=== PATIENT | male | born 1970 | race Caucasian/White ===

== ENCOUNTER 2016-12-20 16:50 | Emergency (ER) | payer OTHER ==
[2016-12-20 16:55] VITALS: BP 143/88
--- NOTE | 2016-12-20 18:11 | UC ---
Throat Pain/Nasal Eriberto HPI - HPI Summary HPI Summary: ONE WEEK OF WORSENING SORE THROAT. FEVER, SWOLLEN LYMPH NODES. - History of Current Complaint Chief Complaint: UCRespiratory Stated Complaint: SORE THROAT Time Seen by Provider: 12/20/16 16:58 Hx Obtained From: Patient Onset/Duration: Gradual Onset, Lasting Weeks, Still Present Severity: Moderate Pain Intensity: 0 Pain Scale Used: 0-10 Numeric Cough: None Associated Signs & Symptoms: Positive: Dysphagia, Hoarseness, Fever - Epiglottits Risk Factors Epiglottis Risk Factors: Negative - Allergies/Home Medications Allergies/Adverse Reactions: Allergies Allergy/AdvReac Type Severity Reaction Status Date / Time Morphine Allergy Intermediate Nausea Verified 12/20/16 16:55 Amoxicillin Allergy THROAT Verified 12/20/16 16:55 SWELLING Penicillins Allergy Anaphylatic Verified 12/20/16 16:55 Shock Sulfa Antibiotics Allergy Hives Verified 12/20/16 16:55 Hydrocodone [From Vicodin] AdvReac Agitation Verified 12/20/16 16:55 Home Medications: Home Medications Ibuprofen TAB* [Advil TAB*] 1,000 mg PO PRN 12/20/16 [History] PMH/Surg Hx/FS Hx/Imm Hx Previously Healthy: Yes Endocrine History Of: Denies: Diabetes Cardiovascular History Of: Denies: Hypertension, Pacemaker/ICD, Congestive Heart Failure Respiratory History Of: Reports: Bronchitis GI/ History Of: Reports: Kidney Stones - IN PAST Denies: Renal Disease Neurological History Of: Reports: Migraine - Surgical History Surgical History: Yes Surgery Procedure, Year, and Place: Back [id number]/umbilical hernia repair 12/29/13 - Family History Known Family History: Positive: Unknown, Cardiac Disease - Social History Occupation: Employed Full-time Lives: With Family Alcohol Use: Occasionally Alcohol Amount: 6 PACK /WEEK Substance Use Type: None Smoking Status (MU): Never Smoked Tobacco - Immunization History Most Recent Tetanus Shot: UTD Review of Systems Constitutional: Fever, Chills, Fatigue Skin: Negative ENT: Sore Throat Respiratory: Negative Cardiovascular: Negative Gastrointestinal: Negative Genitourinary: Negative Motor: Negative Neurovascular: Negative Musculoskeletal: Negative Neurological: Negative Psychological: Negative All Other Systems Reviewed And Are Negative: Yes Physical Exam Triage Information Reviewed: Yes Appearance: No Pain Distress, Well-Nourished, Ill-Appearing - MILD Vital Signs: Initial Vital Signs Temp 97.5 F 12/20/16 16:51 Pulse 93 12/20/16 16:51 Resp 18 12/20/16 16:51 BP 143/88 12/20/16 16:51 Pulse Ox 99 12/20/16 16:51 Vital Signs Reviewed: Yes Eye Exam: Normal Eyes: Positive: Conjunctiva Clear ENT Exam: Normal ENT: Positive: Hearing grossly normal, Pharyngeal erythema, TM dull, Tonsillar swelling Dental Exam: Normal Neck exam: Normal Neck: Positive: Supple, Nontender, No Lymphadenopathy Respiratory Exam: Normal Respiratory: Positive: Chest non-tender, Lungs clear, Normal breath sounds, No respiratory distress Cardiovascular Exam: Normal Cardiovascular: Positive: RRR, No Murmur, Pulses Normal Abdominal Exam: Normal Abdomen Description: Positive: Nontender, No Organomegaly Musculoskeletal Exam: Normal Musculoskeletal: Positive: Strength Intact, ROM Intact, No Edema Neurological Exam: Normal Psychological Exam: Normal Psychological: Positive: Normal Response To Family Skin Exam: Normal Throat Pain/Nasal Course/Dx - Differential Dx/Diagnosis Differential Diagnosis/HQI/PQRI: Pharyngitis, Sinusitis, Tonsillitis, URI Provider Diagnoses: STREP TONSILLITIS Discharge - Discharge Plan Condition: Stable Disposition: HOME Prescriptions: Clindamycin Cap(NF) [Cleocin 300 mg Cap(NF)] 300 mg PO TID #30 cap Patient Education Materials: Strep Throat (ED) Referrals: Molly Hernandez MD [Primary Care Provider] -
== END 2016-12-20 17:50 | disposition home or self-care (01) ==
LOC: UCEAST 16:50
DX: J02.0 Streptococcal pharyngitis (principal); Z88.0 Allergy status to penicillin; Z88.1 Allergy status to other antibiotic agents; Z88.2 Allergy status to sulfonamides; Z88.5 Allergy status to narcotic agent
CPT/HCPCS: 87651; 99212; G0463

== ENCOUNTER 2017-04-07 07:54 | Emergency (ER) | payer OTHER ==
--- NOTE | 2017-04-07 08:47 | RAD ---
INDICATION: Left foot and ankle pain after kicking a box COMPARISON: None. TECHNIQUE: 3 views of the left ankle and 3 views of the left foot were obtained. FINDINGS: The well corticated bones exhibit normal alignment. Joint spaces appear maintained. No fracture is seen. IMPRESSION: NORMAL FOOT AND ANKLE RADIOGRAPH. If the patient's symptoms persist, follow-up imaging is recommended.
--- NOTE | 2017-04-07 08:56 | ED ---
Lower Extremity - HPI Summary HPI Summary: Patient presents with left small toe pain after kicking a metal tool box in his bedroom on the way to the bathroom this AM. He was bare foot and had immediate pain. He went back to bed but was unable to sleep due to pain. The toe is swollen without bruising. 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 - History of Current Complaint Chief Complaint: EDExtremityLower Stated Complaint: LEFT FOOT INJURY Time Seen by Provider: 04/07/17 08:35 Hx Obtained From: Patient, Family/Home Stager Mechanism Of Injury: Blunt Trauma Onset of Pain: Immediate Onset/Duration: Hours Severity Initially: Severe Severity Currently: Moderate Pain Intensity: 6 Timing: Constant Character Of Pain: Sharp, Aching Associated Signs And Symptoms: Positive: Swelling Aggravating Factor(s): Standing Alleviating Factor(s): Nothing Able to Bear Weight: Yes - Allergies/Home Medications Allergies/Adverse Reactions: Allergies Allergy/AdvReac Type Severity Reaction Status Date / Time Morphine Allergy Intermediate Nausea Verified 12/20/16 16:55 Amoxicillin Allergy THROAT Verified 12/20/16 16:55 SWELLING Clindamycin Allergy Rash And Verified 04/07/17 08:11 Itching Penicillins Allergy Anaphylatic Verified 12/20/16 16:55 Shock Sulfa Antibiotics Allergy Hives Verified 12/20/16 16:55 Hydrocodone [From Vicodin] AdvReac Agitation Verified 12/20/16 16:55 Home Medications: Home Medications NK [No Home Medications Reported] 04/07/17 [History Confirmed 04/07/17] PMH/Surg Hx/FS Hx/Imm Hx Endocrine/Hematology History: Denies: Hx Diabetes Cardiovascular History: Reports: Other Cardiovascular Problems/Disorders - PATIENT REPORTS LEFT LEG SWELLS AND TURNS AND REDS Denies: Hx Congestive Heart Failure, Hx Hypertension, Hx Pacemaker/ICD GI History: Denies: Other GI Disorders History: Reports: Hx Kidney Stones - IN PAST Denies: Hx Renal Disease Sensory History: Reports: Hx Contacts or Glasses - GLASSES Denies: Hx Hearing Aid Opthamlomology History: Reports: Hx Contacts or Glasses - GLASSES Neurological History: Reports: Hx Headaches, Hx Migraine Psychiatric History: Denies: Hx Panic Disorder - Surgical History Surgery Procedure, Year, and Place: Back [id number]/umbilical hernia repair 12/29/13 Hx Anesthesia Reactions: No - Immunization History Date of Tetanus Vaccine: up to date per pt Infectious Disease History: Denies: Traveled Outside the [place] in Last 30 Days - Family History Known Family History: Positive: Unknown, Cardiac Disease - Social History Occupation: Employed Full-time Lives: With Family Alcohol Use: Occasionally Alcohol Amount: 6 PACK /WEEK Substance Use Type: Reports: None Smoking Status (MU): Never Smoked Tobacco Review of Systems Positive: Arthralgia, Edema All Other Systems Reviewed And Are Negative: Yes Physical Exam Triage Information Reviewed: Yes Vital Signs On Initial Exam: Initial Vitals Temp Pulse Resp BP Pulse Ox 97.6 F 84 18 147/95 99 04/07/17 07:56 04/07/17 07:56 04/07/17 07:56 04/07/17 07:56 04/07/17 07:56 Vital Signs Reviewed: Yes Appearance: Positive: Well-Appearing, Well-Nourished, Pain Distress Skin: Positive: Warm, Skin Color Reflects Adequate Perfusion, Dry, Soft Head/Face: Positive: Normal Head/Face Inspection Eyes: Positive: EOMI, SANAZ, Conjunctiva Clear ENT: Positive: Hearing grossly normal Respiratory/Lung Sounds: Positive: Breath Sounds Present Cardiovascular: Positive: RRR Musculoskeletal: Positive: Pain @ - TTP left small toe, Edema Left - small toe Neurological: Positive: Sensory/Motor Intact, Alert, Oriented to Person Place, Time Psychiatric: Positive: Affect/Mood Appropriate AVPU Assessment: Alert Diagnostics - Vital Signs Vital Signs Temp Pulse Resp BP Pulse Ox 04/07/17 08:08 77 98 04/07/17 08:07 138/96 04/07/17 07:56 97.6 F 84 18 147/95 99 - Laboratory Lab Statement: Any lab studies that have been ordered have been reviewed, and results considered in the medical decision making process. - Radiology No standard instances Xray Interpretation: No Acute Changes Radiology Interpretation Completed By: Radiologist Lower Extremity Course/Dx - Diagnoses Differential Diagnosis/HQI/PQRI: Positive: Arthritis, Bursitis, Cellulitis, Contusion, Fracture (Closed), Sprain, Strain Provider Diagnoses: Contusion of small toe of left foot Discharge - Discharge Plan Condition: Stable Disposition: HOME Patient Education Materials: Foot Contusion (ED) Referrals: Molly Hernandez MD [Primary Care Provider] - Additional Instructions: Please follow-up with your primary care provider with questions or concerns as needed.
[2017-04-07 09:16] VITALS: BP 118/72
== END 2017-04-07 09:02 | disposition home or self-care (01) ==
LOC: ED 07:54
DX: S90.122A Contusion of left lesser toe(s) without damage to nail, initial encounter (principal); W22.8XXA Striking against or struck by other objects, initial encounter; Y93.9 Activity, unspecified; Y92.9 Unspecified place or not applicable
CPT/HCPCS: 99282

== ENCOUNTER 2017-05-07 16:59 | Emergency (ER) | payer OTHER ==
--- NOTE | 2017-05-07 18:22 | RAD ---
Indication: Left knee injury. 4 views of left knee demonstrates no fracture or dislocation. No other bone or joint abnormality is identified. IMPRESSION: No fracture of the left knee is noted.
[2017-05-07 19:55] VITALS: BP 135/87
--- NOTE | 2017-05-07 20:11 | ED ---
Lower Extremity - HPI Summary HPI Summary: 46M presents with left knee injury s/p twisting it today. He was coming down a ladder when he twisted his knee. He denies any previous injury to the knee. He is able to bear weight on it. He denies any popping or locking of the knee. He has not taken anything for pain. He denies any numbness or tingling. He states pain is greatest when he has his knee bent. He denies any instability to the knee. - History of Current Complaint Chief Complaint: EDExtremityLower Stated Complaint: LT KNEE INURY Time Seen by Provider: 05/07/17 19:31 Pain Intensity: 10 - Allergies/Home Medications Allergies/Adverse Reactions: Allergies Allergy/AdvReac Type Severity Reaction Status Date / Time Morphine Allergy Intermediate Nausea Verified 12/20/16 16:55 Amoxicillin Allergy THROAT Verified 12/20/16 16:55 SWELLING Clindamycin Allergy Rash And Verified 04/07/17 08:11 Itching Penicillins Allergy Anaphylatic Verified 12/20/16 16:55 Shock Sulfa Antibiotics Allergy Hives Verified 12/20/16 16:55 Hydrocodone [From Vicodin] AdvReac Agitation Verified 12/20/16 16:55 PMH/Surg Hx/FS Hx/Imm Hx Endocrine/Hematology History: Denies: Hx Diabetes Cardiovascular History: Reports: Other Cardiovascular Problems/Disorders - PATIENT REPORTS LEFT LEG SWELLS AND TURNS AND REDS Denies: Hx Congestive Heart Failure, Hx Hypertension, Hx Pacemaker/ICD GI History: Denies: Other GI Disorders History: Reports: Hx Kidney Stones - IN PAST Denies: Hx Renal Disease Sensory History: Reports: Hx Contacts or Glasses - GLASSES Denies: Hx Hearing Aid Opthamlomology History: Reports: Hx Contacts or Glasses - GLASSES Neurological History: Reports: Hx Headaches, Hx Migraine Psychiatric History: Denies: Hx Panic Disorder - Surgical History Surgery Procedure, Year, and Place: Back [id number]/umbilical hernia repair 12/29/13 Hx Anesthesia Reactions: No - Immunization History Date of Tetanus Vaccine: up to date per pt Infectious Disease History: No Infectious Disease History: Denies: Traveled Outside the [place] in Last 30 Days - Family History Known Family History: Positive: Unknown, Cardiac Disease - Social History Alcohol Use: Occasionally Alcohol Amount: 6 PACK /WEEK Substance Use Type: Reports: None Smoking Status (MU): Never Smoked Tobacco Review of Systems Negative: Fever Negative: Chest Pain Negative: Shortness Of Breath Positive: Myalgia - left knee pain All Other Systems Reviewed And Are Negative: Yes Physical Exam Triage Information Reviewed: Yes Vital Signs On Initial Exam: Initial Vitals Temp Pulse Resp BP Pulse Ox 97.6 F 77 20 132/91 97 05/07/17 17:24 05/07/17 17:24 05/07/17 17:24 05/07/17 17:24 05/07/17 17:24 Vital Signs Reviewed: Yes Appearance: Positive: Well-Appearing Skin: Positive: Warm, Dry Head/Face: Positive: Normal Head/Face Inspection Eyes: Positive: Normal, Conjunctiva Clear Respiratory/Lung Sounds: Positive: Clear to Auscultation, Breath Sounds Present Cardiovascular: Positive: Normal, RRR Musculoskeletal: Positive: Limited @ - knee due to pain, Other - neg kevin, anterior drawer, good pulses, neg ballotment - [place] Coma Scale Coma Scale Total: 15 Diagnostics - Vital Signs Vital Signs Temp Pulse Resp BP Pulse Ox 05/07/17 19:53 98.5 F 61 135/87 99 05/07/17 18:56 60 16 134/95 97 05/07/17 17:26 97.9 F 80 20 132/91 98 05/07/17 17:24 97.6 F 77 20 132/91 97 - Laboratory Lab Statement: Any lab studies that have been ordered have been reviewed, and results considered in the medical decision making process. - Radiology left knee pain Xray Interpretation: No Acute Changes - IMPRESSION: No fracture of the left knee is noted. Radiology Interpretation Completed By: Radiologist Lower Extremity Course/Dx - Course Course Of Treatment: 46M presents with left knee injury s/p twisting coming down a ladder. He is able to bear weight on it with pain. denies any instability. neg ballotment, kevin, potenital laxity on anterior drawer. xray normal. told to use immbolizer and crutches and to follow up with ortho. patient understands and agrees with plan - Diagnoses Differential Diagnosis/HQI/PQRI: Positive: Fracture (Closed), Sprain, Strain Provider Diagnoses: Left knee pain Discharge - Discharge Plan Condition: Good Disposition: HOME Patient Education Materials: Knee Pain (ED) Forms: *Work Release Referrals: Molly Hernandez MD [Primary Care Provider] - Lilly Cid MD [Medical Doctor] - Additional Instructions: Take Tylenol or ibuprofen every 6 hours as needed for pain Apply ice, rest, elevate Keep brace on area Follow up with ortho Return to ED if develop any new or worsening symptoms
== END 2017-05-07 20:26 | disposition home or self-care (01) ==
LOC: ED 16:59
DX: M25.562 Pain in left knee (principal)
CPT/HCPCS: 99282

== ENCOUNTER 2017-11-16 08:31 | Emergency (ER) | payer OTHER ==
[2017-11-16 08:36] VITALS: BP 139/95
[2017-11-16] MEDS ORDERED: Ibuprofen TAB* 600 MG PO ONE (08:51)
--- NOTE | 2017-11-16 08:56 | ED ---
Upper Extremity Pain - HPI Summary HPI Summary: 47 male presents to ED with complaints of right shoulder pain that began this morning after a mechanical fall. Patient was carrying tools when he slipped on ice and fell backward and onto right shoulder. Denies numbness and tingling. Does have pain with movement, lifting passed 45 degrees with abduction and flexion. No other injuries, denies neck pain, hitting head and back pain. States when he moves his shoulder he feels ripping. Denies hearing or feeling pops/tearing. Is right hand dominant. Has not taken any medication. No other complaints. No PMHx. No bruising or swelling. - History of Current Complaint Chief Complaint: EDExtremityUpper Stated Complaint: RIGHT SHOULDER INJURY Time Seen by Provider: 11/16/17 08:48 Hx Obtained From: Patient Mechanism Of Injury: Fall From A Standing Position Onset/Duration: Started Hours Ago, Traumatic, Still Present Timing: Constant - worse with movement Severity Initially: Moderate Severity Currently: Moderate Pain Location: Shoulder - right Character: Sharp - with movement, Aching Aggravating Factor(s): Movement, Lifting, Flexion, Abduction Alleviating Factor(s): Rest - position Associated Signs & Symptoms: Negative: Negative, Redness, Bruising, Weakness, Numbness/Tingling, Nausea, Vomiting Related History: Dominant Hand Right - Allergies/Home Medications Allergies/Adverse Reactions: Allergies Allergy/AdvReac Type Severity Reaction Status Date / Time Morphine Allergy Intermediate Nausea Verified 11/16/17 08:36 Amoxicillin Allergy THROAT Verified 11/16/17 08:36 SWELLING Clindamycin Allergy Rash And Verified 11/16/17 08:36 Itching Penicillins Allergy Anaphylatic Verified 11/16/17 08:36 Shock Sulfa Antibiotics Allergy Hives Verified 11/16/17 08:36 Hydrocodone [From Vicodin] AdvReac Agitation Verified 11/16/17 08:36 PMH/Surg Hx/FS Hx/Imm Hx Endocrine/Hematology History: Denies: Hx Diabetes Cardiovascular History: Reports: Other Cardiovascular Problems/Disorders - PATIENT REPORTS LEFT LEG SWELLS AND TURNS AND REDS Denies: Hx Congestive Heart Failure, Hx Hypertension, Hx Pacemaker/ICD GI History: Denies: Other GI Disorders History: Reports: Hx Kidney Stones - IN PAST Denies: Hx Renal Disease Sensory History: Reports: Hx Contacts or Glasses - GLASSES Denies: Hx Hearing Aid Opthamlomology History: Reports: Hx Contacts or Glasses - GLASSES Neurological History: Reports: Hx Headaches, Hx Migraine Psychiatric History: Denies: Hx Panic Disorder - Cancer History Cancer Type, 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 - Surgical History Surgery Procedure, Year, and Place: Back [id number]/umbilical hernia repair 12/29/13 Hx Anesthesia Reactions: No - Immunization History Date of Tetanus Vaccine: up to date per pt Infectious Disease History: Unable to Obtain/Confirm Infectious Disease History: Denies: Traveled Outside the [place] in Last 30 Days - Family History Known Family History: Positive: Unknown, Cardiac Disease - Social History Alcohol Use: Occasionally Alcohol Amount: 6 PACK /WEEK Substance Use Type: Reports: None Smoking Status (MU): Never Smoked Tobacco Review of Systems Constitutional: Negative Cardiovascular: Negative Respiratory: Negative Positive: Arthralgia, Myalgia, Decreased ROM - right shoulder Neurological: Negative All Other Systems Reviewed And Are Negative: Yes Physical Exam Triage Information Reviewed: Yes Vital Signs On Initial Exam: Initial Vitals Temp Pulse Resp BP Pulse Ox 95.4 F 71 16 139/95 98 11/16/17 08:33 11/16/17 08:33 11/16/17 08:33 11/16/17 08:33 11/16/17 08:33 Vital Signs Reviewed: Yes Appearance: Positive: Well-Appearing, No Pain Distress, Well-Nourished Skin: Positive: Warm, Skin Color Reflects Adequate Perfusion, Dry. Negative: Cold, Cyanosis @, Pale, Erythema @ Head/Face: Positive: Normal Head/Face Inspection. Negative: Scalp Eyes: Positive: Conjunctiva Clear ENT: Positive: Hearing grossly normal Neck: Positive: Supple, Nontender Respiratory/Lung Sounds: Positive: Clear to Auscultation, Breath Sounds Present. Negative: Rales, Rhonchi, Stridor, Wheezes Cardiovascular: Positive: Normal, RRR, Pulses are Symmetrical in both Upper and Lower Extremities - 2+ radial b/l. Negative: Murmur, Rub Musculoskeletal: Positive: Limited @ - with flexion/ext and abduction of right shoulder. no pain with palpation or movement of rest of arm elbow/wrist, Pain @ - on palpation of anterior shoulder, Other - no ecchymosis, edema or obvious deformity. rest of MSK exam normal. Negative: Interruption @, Edema Left, Edema Right Neurological: Positive: Normal, Sensory/Motor Intact, Alert, Oriented to Person Place, Time, Reflexes Intact, NV Bundle Intact Distally, Normal Gait Diagnostics - Vital Signs Vital Signs Temp Pulse Resp BP Pulse Ox 11/16/17 08:33 95.4 F 71 16 139/95 98 - Laboratory Lab Statement: Any lab studies that have been ordered have been reviewed, and results considered in the medical decision making process. - Radiology shoulder right Xray Interpretation: No Acute Changes Radiology Interpretation Completed By: Radiologist - and myself Course/Dx - Course Course Of Treatment: xray obtained and negative. given ibuprofen while in ED. appears to have suffered a right shoulder sprain. given sling. follow up with ortho if symptoms persist/worsen. RICE and avoid use. Aware of worsening signs and symptoms to watch out for. Follow up pcp. No concerns for other etiology at this time. - Diagnoses Differential Diagnosis/HQI/PQRI: Positive: Contusion, Fracture (Closed), Strain , Sprain Provider Diagnoses: Sprain of right shoulder Discharge - Discharge Plan Condition: Stable Disposition: HOME Patient Education Materials: Shoulder Sprain (ED) Referrals: Molly Hernandez MD [Primary Care Provider] - Additional Instructions: Rest and ice. Try and avoid over use. Continue ibuprofen for pain and inflammation. Take with food to avoid upset stomach. Wear sling to avoid use until symptoms improve. You may remove throughout day to avoid frozen shoulder, as discussed. Follow up with ortho if symptoms persist or worsen as further imaging and evaluation may be required. Follow up PCP. Any new or worsening symptoms please seek medical attention promptly, as discussed.
--- NOTE | 2017-11-16 09:31 | RAD ---
HISTORY: Fall, right shoulder pain COMPARISONS: September 24, 2015 VIEWS: 4, Frontal internal rotation, external rotation, outlet, and axillary views of the right shoulder FINDINGS: BONE DENSITY: Normal. BONES: There is no displaced fracture. JOINTS: There is no arthropathy. ALIGNMENT: There is no dislocation. SOFT TISSUES: Unremarkable. OTHER FINDINGS: None. IMPRESSION: NO ACUTE OSSEOUS INJURY. IF SYMPTOMS PERSIST, RECOMMEND REPEAT IMAGING.
== END 2017-11-16 09:45 | disposition home or self-care (01) ==
LOC: ED 08:31
DX: S43.401A Unspecified sprain of right shoulder joint, initial encounter (principal); W00.0XXA Fall on same level due to ice and snow, initial encounter; Y93.89 Activity, other specified; Y92.9 Unspecified place or not applicable; G43.909 Migraine, unspecified, not intractable, without status migrainosus; Z87.442 Personal history of urinary calculi; Z88.1 Allergy status to other antibiotic agents; Z88.5 Allergy status to narcotic agent; Z88.0 Allergy status to penicillin
CPT/HCPCS: 99282; A9270-GY

== ENCOUNTER 2017-12-17 18:20 | Emergency (ER) | payer OTHER ==
[2017-12-17] MEDS ORDERED: Tetracaine 0.5% OPTH.SOL 4 ML* 1 DROP BTL LEFT EYE ONE (20:12)
[2017-12-17] MEDS ORDERED: Fluorescein Sodium TOPICAL* 1 MG TEST OPHTHALMIC ONE (20:12)
--- NOTE | 2017-12-17 21:27 | ED ---
Throat Pain/Nasal Congestion - HPI Summary HPI Summary: 47M presents with left eye injury. He states that he got some wood into his eye. He states feels like object is still there and has scratched his eye. He has not taken anything for pain. He tetanus was 3 years ago. he admits to blurry vision. He denies any other injury. His pain is 5/10. His eye continues to tear. He wear glasses but does not wear contacts. He is allergic to most antibiotics. He admits to photophobia. - History of Current Complaint Chief Complaint: EDEyeProblem Time Seen by Provider: 12/17/17 20:11 - Allergies/Home Medications Allergies/Adverse Reactions: Allergies Allergy/AdvReac Type Severity Reaction Status Date / Time Morphine Allergy Intermediate Nausea Verified 12/17/17 18:27 Amoxicillin Allergy THROAT Verified 12/17/17 18:27 SWELLING Clindamycin Allergy Rash And Verified 12/17/17 18:27 Itching Penicillins Allergy Anaphylatic Verified 12/17/17 18:27 Shock Sulfa Antibiotics Allergy Hives Verified 12/17/17 18:27 Hydrocodone [From Vicodin] AdvReac Agitation Verified 12/17/17 18:27 PMH/Surg Hx/FS Hx/Imm Hx Endocrine/Hematology History: Denies: Hx Diabetes Cardiovascular History: Reports: Other Cardiovascular Problems/Disorders - PATIENT REPORTS LEFT LEG SWELLS AND TURNS AND REDS Denies: Hx Congestive Heart Failure, Hx Hypertension, Hx Pacemaker/ICD GI History: Denies: Other GI Disorders History: Reports: Hx Kidney Stones - IN PAST Denies: Hx Renal Disease Sensory History: Reports: Hx Contacts or Glasses - GLASSES Denies: Hx Hearing Aid Opthamlomology History: Reports: Hx Contacts or Glasses - GLASSES Neurological History: Reports: Hx Headaches, Hx Migraine Psychiatric History: Denies: Hx Panic Disorder - Cancer History Cancer Type, 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 - Surgical History Surgery Procedure, Year, and Place: Back [id number]/umbilical hernia repair 12/29/13 Hx Anesthesia Reactions: No - Immunization History Date of Tetanus Vaccine: up to date per pt Infectious Disease History: No Infectious Disease History: Denies: Traveled Outside the [place] in Last 30 Days - Family History Known Family History: Positive: Unknown, Cardiac Disease - Social History Alcohol Use: Occasionally Alcohol Amount: 6 PACK /WEEK Substance Use Type: Reports: None Smoking Status (MU): Never Smoked Tobacco Review of Systems Negative: Fever Positive: Photophobia, Drainage, Other - left eye pain Negative: Chest Pain Negative: Shortness Of Breath All Other Systems Reviewed And Are Negative: Yes Physical Exam Triage Information Reviewed: Yes Vital Signs On Initial Exam: Initial Vitals Temp Pulse Resp BP Pulse Ox 98 F 77 16 133/94 98 12/17/17 18:24 12/17/17 18:24 12/17/17 18:24 12/17/17 18:24 12/17/17 18:24 Vital Signs Reviewed: Yes Appearance: Positive: Pain Distress Skin: Positive: Warm, Dry Head/Face: Positive: Normal Head/Face Inspection Eyes: Positive: EOMI, SANAZ, Conjunctiva Inflammed, Other: - 1cm top of left cornea and 1/4cm bottom cornea shown on flourscein exam. no foreign body seen ENT: Positive: Normal ENT inspection, Pharynx normal, TMs normal Respiratory/Lung Sounds: Positive: Clear to Auscultation, Breath Sounds Present Cardiovascular: Positive: Normal, RRR Musculoskeletal: Positive: Normal Neurological: Positive: Normal Psychiatric: Positive: Normal - Leanne Coma Scale Coma Scale Total: 15 Procedures - Eye Procedure Alcaine Drops Administered: Yes - 1cm top and 1/4cm bottom left cornea uptake on fluorescein Eye Irrigated w/ Saline (ccs): 1,000 - with rachel lens Diagnostics - Vital Signs Vital Signs Temp Pulse Resp BP Pulse Ox 12/17/17 19:57 97.7 F 70 24 143/90 98 12/17/17 18:24 98 F 77 16 133/94 98 - Laboratory Lab Statement: Any lab studies that have been ordered have been reviewed, and results considered in the medical decision making process. EENT Course/Dx - Course Course Of Treatment: 47M presents with left eye injury. He states that he got some wood into his eye. He states feels like object is still there and has scratched his eye. He has not taken anything for pain. He tetanus was 3 years ago. he admits to blurry vision. He denies any other injury. His pain is 5/ 10. His eye continues to tear. He wear glasses but does not wear contacts. He is allergic to most antibiotics. on exam has large 1cm abrasion to 12 position cornea and 1/4cm to bottom of cornea on fluroscein exam. no foreign body seen. 1 liter with rachel lens provided some relief. discussed antiobiotic options and decided on cipro. will have follow up with optho. patient understand and agrees with plan. - Differential Diagnoses Differential Diagnoses: Conjunctivitis, Corneal Abrasion, Foreign Body - Diagnoses Provider Diagnoses: Corneal abrasion, left Discharge - Discharge Plan Condition: Good Disposition: HOME Patient Education Materials: Corneal Abrasion (ED) Referrals: Molly Hernandez MD [Primary Care Provider] - Emmanuel Manzo MD [Medical Doctor] - Additional Instructions: Place 1 drop in eye 4 times a day for 5 days Use artificial tears or saline to rinse eye for symptomatic relief Take Tylenol or ibuprofen for pain Follow up with ophthalmology within 5 days Return to ED if develop any new or worsening symptoms
[2017-12-17] MEDS ORDERED: Ciprofloxacin 0.3% OPTH.SOL* 2.5 ML BTL LEFT EYE ONE (21:41)
[2017-12-17 21:50] VITALS: BP 138/82
== END 2017-12-17 21:49 | disposition home or self-care (01) ==
LOC: ED 18:20
DX: S05.02XA Injury of conjunctiva and corneal abrasion without foreign body, left eye, initial encounter (principal); H53.142 Visual discomfort, left eye; X58.XXXA Exposure to other specified factors, initial encounter; Y92.9 Unspecified place or not applicable
CPT/HCPCS: 99282; A9270-GY

== ENCOUNTER 2018-01-25 18:18 | Emergency (ER) | payer OTHER ==
--- NOTE | 2018-01-25 19:41 | RAD ---
Indication: 3 days LEFT foot pain without known injury. Comparison: April 07, 2017 Technique: AP, lateral, and oblique views LEFT foot. Report: Normal articular alignment. Minimal osteophytosis and joint space narrowing at the first metatarsal phalangeal joint. Small subchondral cyst at the lateral margin of the head of the first proximal phalanx without change. Negative for fracture or radiographic stigmata of stress reaction. Plantar aspect soft tissue edema. No conspicuous foreign body or subcutaneous emphysema. IMPRESSION: 1. Negative for fracture. 2. Nonspecific plantar aspect soft tissue edema. 3. Mild first metatarsal phalangeal joint osteoarthritis.
[2018-01-25 22:10] VITALS: BP 132/97
--- NOTE | 2018-01-28 20:32 | ED ---
Lower Extremity - HPI Summary HPI Summary: Patient is an otherwise healthy 47-year-old male presents to the ED with a chief complaint of lt foot pain x 3 days denies injury "foot is normally numb so dont know how bad I hurt it." He is complaining of pain most notably onto the lateral side of the left foot not involving the plantar or dorsal surface. There is no discoloration. Denies temperature changes. However he endorses some tingling at baseline. He states he has had numbness and tingling intermittently since having back surgery and is able to feel the foot at baseline. He does not recall injuring the foot. He states the pain is sharp and stabbing and does not radiate. Aggravated by walking and ambulation, relieved with nothing. - History of Current Complaint Chief Complaint: EDExtremityLower Stated Complaint: LT FT INJURY Time Seen by Provider: 01/25/18 20:44 Hx Obtained From: Patient Mechanism Of Injury: Unknown Onset of Pain: Immediate Onset/Duration: Days Severity Initially: Moderate Severity Currently: Moderate Pain Intensity: 2 Pain Scale Used: 0-10 Numeric Timing: Constant Location: Is Discrete @ - Left lateral foot Character Of Pain: Aching Associated Signs And Symptoms: Negative: Swelling, Redness, Bruising, Fever, Weakness, Dizziness Aggravating Factor(s): Standing, Ambulation Alleviating Factor(s): Rest Able to Bear Weight: Yes - Risk Factors Gout Risk Factors: Negative DVT Risk Factors: Negative Septic Arthritis Risk Factor: Negative - Allergies/Home Medications Allergies/Adverse Reactions: Allergies Allergy/AdvReac Type Severity Reaction Status Date / Time acetaminophen [From Vicodin] Allergy Agitation Verified 01/25/18 18:27 amoxicillin Allergy Hives/Diff. Verified 01/25/18 18:27 Breathing/I tching clindamycin Allergy Itching Verified 01/25/18 18:28 hydrocodone [From Vicodin] Allergy Agitation Verified 01/25/18 18:27 morphine Allergy Nausea And Verified 01/25/18 18:25 Vomiting Penicillins Allergy Hives Verified 01/25/18 18:26 Sulfa (Sulfonamide Allergy Hives Verified 01/25/18 18:28 Antibiotics) PMH/Surg Hx/FS Hx/Imm Hx Previously Healthy: Yes Endocrine/Hematology History: Denies: Hx Diabetes Cardiovascular History: Reports: Other Cardiovascular Problems/Disorders - PATIENT REPORTS LEFT LEG SWELLS AND TURNS AND REDS Denies: Hx Congestive Heart Failure, Hx Hypertension, Hx Pacemaker/ICD GI History: Denies: Other GI Disorders History: Reports: Hx Kidney Stones - IN PAST Denies: Hx Renal Disease Sensory History: Reports: Hx Contacts or Glasses - GLASSES Denies: Hx Hearing Aid Opthamlomology History: Reports: Hx Contacts or Glasses - GLASSES Neurological History: Reports: Hx Headaches, Hx Migraine Psychiatric History: Denies: Hx Panic Disorder - Cancer History Cancer Type, 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 - Surgical History Surgery Procedure, Year, and Place: Back [id number]/umbilical hernia repair 12/29/13 Hx Anesthesia Reactions: No - Immunization History Date of Tetanus Vaccine: up to date per pt Hx Pertussis Vaccination: No Immunizations Up to Date: Unable to Obtain/Confirm Infectious Disease History: No Infectious Disease History: Denies: Traveled Outside the [place] in Last 30 Days - Family History Known Family History: Positive: Unknown, Cardiac Disease - Social History Occupation: Unemployed Lives: With Family Alcohol Use: Weekly Alcohol Amount: 6 PACK /WEEK Hx Substance Use: No Substance Use Type: Reports: None Hx Tobacco Use: No Smoking Status (MU): Never Smoked Tobacco Review of Systems Constitutional: Negative Negative: Fever, Chills, Fatigue Eyes: Negative Cardiovascular: Negative Respiratory: Negative Negative: Abdominal Pain, Vomiting, Diarrhea, Nausea Genitourinary: Negative Positive: no symptoms reported, see HPI Positive: Arthralgia, Myalgia - left lateral foot pain Skin: Negative Psychological: Normal All Other Systems Reviewed And Are Negative: Yes Physical Exam Triage Information Reviewed: Yes Vital Signs On Initial Exam: Initial Vitals Temp Pulse Resp BP Pulse Ox 98.0 F 74 16 152/98 96 01/25/18 18:21 01/25/18 18:21 01/25/18 18:21 01/25/18 18:21 01/25/18 18:21 Vital Signs Reviewed: Yes Appearance: Positive: Well-Appearing, Well-Nourished Skin: Positive: Warm, Skin Color Reflects Adequate Perfusion Head/Face: Positive: Normal Head/Face Inspection Eyes: Positive: EOMI, SANAZ, Conjunctiva Clear Neck: Positive: Supple, No Lymphadenopathy Respiratory/Lung Sounds: Positive: Clear to Auscultation, Breath Sounds Present Cardiovascular: Positive: Normal, RRR, Pulses are Symmetrical in both Upper and Lower Extremities Musculoskeletal: Positive: Pain @ - Left lateral foot without ecchymosis or erythema Neurological: Positive: Speech Normal Psychiatric: Positive: Normal, Affect/Mood Appropriate Diagnostics - Vital Signs Vital Signs Temp Pulse Resp BP Pulse Ox 01/25/18 22:09 97.9 F 65 16 132/97 97 01/25/18 18:21 98.0 F 74 16 152/98 96 - Laboratory Lab Statement: Any lab studies that have been ordered have been reviewed, and results considered in the medical decision making process. Lower Extremity Course/Dx - Course Course Of Treatment: During the course of treatment, the patient is evaluated for left lateral foot pain. He denies known injury. He endorses numbness and tingling at baseline in the foot. There is no deformity, ecchymosis or erythema or warmth noted. He is unable to have full range of motion, but this is at baseline. X-rays of the foot are obtained and shows no acute pathologies. Patient is offered a surgical shoe, but he declines. I believe he has a bout of tendinitis in the area due to the inability to feel an increase of pain until it has been exacerbated. I strongly encourage purchasing insoles. He agrees to this. I have also given him a [place] referral if symptoms worsen or persist. - Diagnoses Provider Diagnoses: Tendinitis Discharge - Discharge Plan Condition: Stable Disposition: HOME Patient Education Materials: Tendinitis (ED) Referrals: Molly Hernandez MD [Primary Care Provider] - Lilly Cid MD [Medical Doctor] - Additional Instructions: as discussed, I recommend you obtained shoe insoles after a walking study has been performed You most likely have a tendinitis either from overuse from a stress fracture or just daily overuse Ibuprofen 600 mg 3 times daily for at least 5 days Stay off the foot as much as possible Elevate as much as possible Keep the foot Shreyas wrapped Ice I have given you a referral for Ortho if symptoms persist
== END 2018-01-25 22:09 | disposition home or self-care (01) ==
LOC: ED 18:18
DX: M77.52 Other enthesopathy of left foot and ankle (principal); M19.072 Primary osteoarthritis, left ankle and foot; Z88.3 Allergy status to other anti-infective agents; Z88.5 Allergy status to narcotic agent; Z88.2 Allergy status to sulfonamides; Z88.0 Allergy status to penicillin
CPT/HCPCS: 99281

== ENCOUNTER 2018-08-30 08:20 | Emergency (ER) | payer OTHER ==
[2018-08-30] MEDS ORDERED: NS 0.9% 1000 ML* 1,000 ML IV ONE (09:19)
[2018-08-30 09:42] LABS: ABS Basophils 0.1 10^3/ul (0-0.2); ABS Eosinophils 0.1 10^3/ul (0-0.6); ABS Lymphocytes 1.6 10^3/ul (1.0-4.8); ABS Monocytes 0.7 10^3/ul (0-0.8); ABS Nucleated RBC 0 10^3/ul; Eosinophil % 1.4 % (0-6); Hematocrit 47 % (42-52); Hemoglobin 15.9 g/dl (14.0-18.0); Lymphocyte % 19.2 % (25-47); Mean Corpuscular HGB Conc 34 g/dl (31-36); Mean Corpuscular Hemoglobin 31 pg (27-31); Mean Corpuscular Volume 92 fL (80-94); Mean Platelet Volume 8.7 um3 (7.4-10.4); Nucleated Red Blood Cells % 0.1; Platelet Count 242 10^3/ul (150-450); Red Blood Count 5.09 10^6/ul (4.00-5.40); Red Cell Distribution Width 13 % (10.5-15); White Blood Count 8.5 10^3/ul (3.5-10.8)
[2018-08-30 09:54] LABS: INR 0.88 (0.77-1.02)
[2018-08-30 09:59] LABS: EGFR Non-African American 66.3 (>60)
--- NOTE | 2018-08-30 10:47 | RAD ---
Indication: RIGHT upper quadrant pain. Comparison: January 02, 2014 CT. Technique: RIGHT upper quadrant ultrasound. Report: Bowel gas and echogenic liver limits acoustic window. Appropriate direction flow documented in the portal and hepatic veins. 15.2 cm liver is increased in echogenicity. Negative for focal hepatic lesions. Negative for intrahepatic biliary dilatation. 4.2 mm poorly visualized common bile duct. Adequately distended gallbladder with normal 2.2 mm wall is without pathologic finding. Negative for sonographic Rayo's sign. The pancreatic head and tail are partially obscured due to bowel gas with the visualized pancreas unremarkable. Negative for ascites. 12.0 cm RIGHT kidney is unremarkable. IMPRESSION: #. Hepatosteatosis. #. No evidence for gallbladder pathology.
--- NOTE | 2018-08-30 11:04 | ED ---
Abdominal Pain/Male - HPI Summary HPI Summary: Patient presents with right sided pain that started midnight last night. This pain is at the bottom of his ribs and right upper quadrant of his abdomen. States pain was gradual at onset then got very intense earlier this evening and now has down (04/08 currently). No associated symptoms of fevers, chills, chest pain, shortness of breath, jaw pain, fatigue, sweating, cough, nausea, vomiting, diarrhea, arm pain, shoulder pain, numbness, tingling, weakness. He has had a bowel movement since which was normal for him. Denies any symptoms of dysuria, urinary frequency, hesitation, hematuria. He denies any injury to this area and no recent symptoms of cough or congestion. He reports he ate tuvaluan fries and mozzarella sticks around 1999. Has a history of GERD which is not been investigated nor treated by his PCP. His female partner reports he was getting this every other day but since adjusting his diet gets it a couple times a month only. He does not take anything for this. He denies NSAID use, smoking, drinking alcohol excessively or drugs. When his GERD is active, he reports eating or drinking anything causes pain including water. Denies bloody emesis, hematochezia and melena. No known history of GI bleed or ulceration. - History of Current Complaint Chief Complaint: EDChestWallPain Stated Complaint: RT SIDE PAIN Time Seen by Provider: 08/30/18 08:30 Hx Obtained From: Patient, Family/Seasoning Mixer - Pain Intensity: 6 - Allergies/Home Medications Allergies/Adverse Reactions: Allergies Allergy/AdvReac Type Severity Reaction Status Date / Time acetaminophen [From Vicodin] Allergy Agitation Verified 08/30/18 08:24 amoxicillin Allergy Hives/Diff. Verified 08/30/18 08:24 Breathing/I tching clindamycin Allergy Itching Verified 08/30/18 08:24 hydrocodone [From Vicodin] Allergy Agitation Verified 08/30/18 08:24 morphine Allergy Nausea And Verified 08/30/18 08:24 Vomiting Penicillins Allergy Hives Verified 08/30/18 08:24 Sulfa (Sulfonamide Allergy Hives Verified 08/30/18 08:24 Antibiotics) Home Medications: Home Medications NK [No Home Medications Reported] 08/30/18 [History Confirmed 10/01/18] PMH/Surg Hx/FS Hx/Imm Hx Previously Healthy: Yes Endocrine/Hematology History: Denies: Hx Anticoagulant Therapy, Hx Blood Disorders, Hx Diabetes, Hx Anemia , Hx Unexplained Bleeding Cardiovascular History: Reports: Other Cardiovascular Problems/Disorders - PATIENT REPORTS LEFT LEG SWELLS AND TURNS AND REDS Denies: Hx Atrial Fibrillation, Hx Congestive Heart Failure, Hx Embolism, Hx Hypertension, Hx Pacemaker/ICD Respiratory History: Denies: Hx Asthma, Hx Chronic Obstructive Pulmonary Disease (COPD), Hx Pneumonia, Hx Pulmonary Embolism GI History: Reports: Hx Gastroesophageal Reflux Disease - undx'd and untx'd Denies: Hx Cirrhosis, Hx Crohn's Disease, Hx Diverticulosis, Hx Gall Bladder Disease, Hx Gastrointestinal Bleed, Hx Hiatal Hernia, Hx Irritable Bowel, Hx Obstructive Bowel, Hx Ulcer, Other GI Disorders History: Reports: Hx Kidney Stones - IN PAST Denies: Hx Renal Disease Sensory History: Reports: Hx Contacts or Glasses - GLASSES Denies: Hx Hearing Aid Opthamlomology History: Reports: Hx Contacts or Glasses - GLASSES Neurological History: Reports: Hx Headaches, Hx Migraine Psychiatric History: Denies: Hx Panic Disorder - Cancer History Cancer Type, 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 - Surgical History Surgery Procedure, Year, and Place: Back [id number]/umbilical hernia repair 12/29/13 Hx Anesthesia Reactions: No - Immunization History Date of Tetanus Vaccine: up to date per pt Infectious Disease History: No Infectious Disease History: Denies: Traveled Outside the US in Last 30 Days - Family History Known Family History: Positive: Cardiac Disease - father 70's of acute [place] suspected from chronic/untx'd a fib - Social History Lives: With Family Alcohol Use: Weekly Alcohol Amount: 6 PACK /WEEK Hx Substance Use: No Substance Use Type: Reports: None Hx Tobacco Use: No Smoking Status (MU): Never Smoked Tobacco Review of Systems Constitutional: Negative Negative: Fever, Chills, Fatigue Positive: Chest Pain - Rt side lower ribs/under ribs Respiratory: Negative Positive: Abdominal Pain. Negative: Vomiting, Diarrhea, Nausea Genitourinary: Negative Musculoskeletal: Negative Skin: Negative Neurological: Negative Negative: Headache Positive: Anxious All Other Systems Reviewed And Are Negative: Yes Physical Exam Triage Information Reviewed: Yes Vital Signs On Initial Exam: Initial Vitals Temp Pulse Resp BP Pulse Ox 96.0 F 75 22 143/93 99 08/30/18 08:21 08/30/18 08:21 08/30/18 08:21 08/30/18 08:21 08/30/18 08:21 Vital Signs Reviewed: Yes Diagnostics - Vital Signs Vital Signs Temp Pulse Resp BP Pulse Ox 08/30/18 08:21 96.0 F 75 22 143/93 99 - Laboratory Lab Results: Lab Results 08/30/18 08/30/18 08/30/18 Range/Units 09:31 09:31 09:31 WBC 8.5 (3.5-10.8) 10^3/ul RBC 5.09 (4.00-5.40) 10^6/ul Hgb 15.9 (14.0-18.0) g/dl Hct 47 (42-52) % MCV 92 (80-94) fL MCH 31 (27-31) pg MCHC 34 (31-36) g/dl RDW 13 (10.5-15) % Plt Count 242 (150-450) 10^3/ul MPV 8.7 (7.4-10.4) um3 Neut % (Auto) 70.4 (38-83) % Lymph % (Auto) 19.2 L (25-47) % [place] % (Auto) 8.4 H (0-7) % Eos % (Auto) 1.4 (0-6) % Baso % (Auto) 0.6 (0-2) % Absolute Neuts (auto) 6.0 (1.5-7.7) 10^3/ul Absolute Lymphs (auto) 1.6 (1.0-4.8) 10^3/ul Absolute Monos (auto) 0.7 (0-0.8) 10^3/ul Absolute Eos (auto) 0.1 (0-0.6) 10^3/ul Absolute Basos (auto) 0.1 (0-0.2) 10^3/ul Absolute Nucleated RBC 0 10^3/ul Nucleated RBC % 0.1 INR (Anticoag Therapy) 0.88 (0.77-1.02) APTT 29.4 (26.0-36.3) seconds Sodium 137 (135-145) mmol/L Potassium 4.4 (3.5-5.0) mmol/L Chloride 105 (101-111) mmol/L Carbon Dioxide 27 (22-32) mmol/L Anion Gap 5 (2-11) mmol/L BUN 12 (6-24) mg/dL Creatinine 1.17 (0.67-1.17) mg/dL Est GFR ( Amer) 80.2 (>60) Est GFR (Non-Af Amer) 66.3 (>60) BUN/Creatinine Ratio 10.3 (8-20) Glucose 100 (70-100) mg/dL Lactic Acid (0.5-2.0) mmol/L Calcium 9.4 (8.6-10.3) mg/dL Magnesium 2.0 (1.9-2.7) mg/dL Total Bilirubin 0.50 (0.2-1.0) mg/dL AST 25 (13-39) U/L ALT 27 (7-52) U/L Alkaline Phosphatase 36 (34-104) U/L C-Reactive Protein 6.62 (<8.01) mg/L Total Protein 6.9 (6.4-8.9) g/dL Albumin 4.3 (3.2-5.2) g/dL Globulin 2.6 (2-4) g/dL Albumin/Globulin Ratio 1.7 (1-3) Lipase 13 (11.0-82.0) U/L 08/30/18 Range/Units 09:31 WBC (3.5-10.8) 10^3/ul RBC (4.00-5.40) 10^6/ul Hgb (14.0-18.0) g/dl Hct (42-52) % MCV (80-94) fL MCH (27-31) pg MCHC (31-36) g/dl RDW (10.5-15) % Plt Count (150-450) 10^3/ul MPV (7.4-10.4) um3 Neut % (Auto) (38-83) % Lymph % (Auto) (25-47) % [place] % (Auto) (0-7) % Eos % (Auto) (0-6) % Baso % (Auto) (0-2) % Absolute Neuts (auto) (1.5-7.7) 10^3/ul Absolute Lymphs (auto) (1.0-4.8) 10^3/ul Absolute Monos (auto) (0-0.8) 10^3/ul Absolute Eos (auto) (0-0.6) 10^3/ul Absolute Basos (auto) (0-0.2) 10^3/ul Absolute Nucleated RBC 10^3/ul Nucleated RBC % INR (Anticoag Therapy) (0.77-1.02) APTT (26.0-36.3) seconds Sodium (135-145) mmol/L Potassium (3.5-5.0) mmol/L Chloride (101-111) mmol/L Carbon Dioxide (22-32) mmol/L Anion Gap (2-11) mmol/L BUN (6-24) mg/dL Creatinine (0.67-1.17) mg/dL Est GFR ( Amer) (>60) Est GFR (Non-Af Amer) (>60) BUN/Creatinine Ratio (8-20) Glucose (70-100) mg/dL Lactic Acid 0.9 (0.5-2.0) mmol/L Calcium (8.6-10.3) mg/dL Magnesium (1.9-2.7) mg/dL Total Bilirubin (0.2-1.0) mg/dL AST (13-39) U/L ALT (7-52) U/L Alkaline Phosphatase (34-104) U/L C-Reactive Protein (<8.01) mg/L Total Protein (6.4-8.9) g/dL Albumin (3.2-5.2) g/dL Globulin (2-4) g/dL Albumin/Globulin Ratio (1-3) Lipase (11.0-82.0) U/L Result Diagrams: 08/30/18 09:31 08/30/18 09:31 Lab Statement: Any lab studies that have been ordered have been reviewed, and results considered in the medical decision making process. Abdominal Pain Fem Course/Dx - Course Course Of Treatment: Pt presents w/ RUQ/Rt lower rib pain that started last night and progressed - better now. No GI sx, no , sx no breathing or cardiac sx. Labs and U/S are unremarkable for cholecystitis, PNA, PE, etc. Offered additoinal testing such as CT ab/pelvis as pt is still 5/10 pain but does not want any further intervention. Also offered GI cocktail w/ his h/o GERD for therapeutic/diagnostics but he declines this as well. Agrees to f/u w/ PCP this week and return to ED if sx worsen. He is aware he could have a condition that could be dangerous that has not been worked up yet, but prefers to leave. He is in stable condition based on vitals and presenation at this time,. - Diagnoses Provider Diagnoses: RUQ abdominal pain Discharge - Sign-Out/Discharge Documenting (check all that apply): Patient Departure - Discharge Plan Condition: Stable Disposition: HOME Patient Education Materials: Acute Abdominal Pain (ED), Non-Alcoholic Fatty Liver Disease (ED), Gastroesophageal Reflux Disease (ED) Referrals: Molly Hernandez MD [Primary Care Provider] - Additional Instructions: The definitive cause of your right upper quadrant and right lower rib pain was not identified today with the tests that were ordered. You declined further testing however have agreed to try an antacid treatment at home to see if this improves your symptoms. If it does, these may be symptoms of heartburn and/or an ulcer in your stomach. It is important that you follow-up with your PCP to relay this information either way. If the antacid does not help your symptoms, you may benefit from further testing such as a HIDA CCK, CT scan, etc. If your symptoms worsen, however, return to the ED. Call your PCP today to schedule an appointment for follow-up this week. In the meantime, avoid fat and any foods/medications that may worse heartburn (See handout for guidelines). - Billing Disposition and Condition Condition: STABLE Disposition: Home
[2018-08-30 11:16] LABS: Urine Appearance Clear; Urine Blood Negative (Negative); Urine Color Colorless; Urine Ketones Negative (Negative); Urine Protein Negative (Negative); Urine Specific Gravity 1.003 (1.010-1.030); Urine Urobilinogen Negative (Negative)
--- NOTE | 2018-08-30 11:21 | RAD ---
INDICATION: Right lower chest pain. COMPARISON: Comparison is made with a prior study from May 02, 2014. TECHNIQUE: Dual-energy PA and lateral views of the chest were obtained. FINDINGS: The heart is within normal limits in size. Mediastinal and hilar contours appear within normal limits. The lungs are underinflated and clear. No pleural effusion or pneumothorax is seen. IMPRESSION: NO EVIDENCE FOR ACTIVE CARDIOPULMONARY DISEASE.
[2018-08-30 12:05] VITALS: BP 148/81
== END 2018-08-30 12:04 | disposition home or self-care (01) ==
LOC: ED 08:20
DX: R10.11 Right upper quadrant pain (principal); R07.81 Pleurodynia; Z88.3 Allergy status to other anti-infective agents; Z88.5 Allergy status to narcotic agent; Z88.6 Allergy status to analgesic agent; Z88.0 Allergy status to penicillin; Z88.2 Allergy status to sulfonamides
CPT/HCPCS: 36415; 71046; 76705; 80053; 81003; 83605; 83690; 83735; 85025; 85379; 85610; 85730; 86140; 99283

== ENCOUNTER 2018-09-27 11:13 | Emergency (ER) | payer OTHER ==
[2018-09-27 11:26] VITALS: BP 119/83
[2018-09-27 12:41] LABS: ABS Basophils 0.1 10^3/ul (0-0.2); ABS Eosinophils 0.1 10^3/ul (0-0.6); ABS Lymphocytes 2.2 10^3/ul (1.0-4.8); ABS Monocytes 0.4 10^3/ul (0-0.8); ABS Neutrophils 5.1 10^3/ul (1.5-7.7); ABS Nucleated RBC 0 10^3/ul; Eosinophil % 1.2 % (0-6); Hematocrit 47 % (42-52); Hemoglobin 16.1 g/dl (14.0-18.0); Lymphocyte % 27.5 % (25-47); Mean Corpuscular HGB Conc 34 g/dl (31-36); Mean Corpuscular Hemoglobin 31 pg (27-31); Mean Corpuscular Volume 91 fL (80-94); Mean Platelet Volume 8.6 um3 (7.4-10.4); Nucleated Red Blood Cells % 0; Platelet Count 252 10^3/ul (150-450); Red Blood Count 5.16 10^6/ul (4.00-5.40); Red Cell Distribution Width 13 % (10.5-15); White Blood Count 7.9 10^3/ul (3.5-10.8)
[2018-09-27 12:51] LABS: INR 0.91 (0.77-1.02)
[2018-09-27 13:00] LABS: EGFR Non-African American 71.1 (>60)
--- NOTE | 2018-09-27 13:04 | RAD ---
Indication: Chest pain. 2 views of the chest demonstrate no mediastinal shift. Heart is of normal size and configuration. Lung francis are clear. No significant change is noted since August 30, 2018. IMPRESSION: No active cardiopulmonary disease is noted.
[2018-09-27] MEDS ORDERED: Iohexol 300* (CONTRAST) 10 ML SDV IV ONE (13:15)
--- NOTE | 2018-09-27 14:57 | RAD ---
INDICATION: Right upper quadrant pain, enlarged liver. COMPARISON: Comparison is made with a prior CT of the abdomen and pelvis from January 02, 2014 and a right upper quadrant ultrasound from August 30, 2018. TECHNIQUE: A CT scan of the abdomen and pelvis was performed with intravenous and with oral contrast following intravenous injection of 121 ml of Omnipaque 300 nonionic contrast. Contiguous axial sections were obtained from the lung bases through the symphysis pubis. Images were reconstructed in the coronal and sagittal planes. FINDINGS: LUNG BASES: The lung bases are clear. No pleural effusion is present. LIVER: The liver is decreased in attenuation consistent with fatty infiltration. No significant focal abnormality is seen. GALLBLADDER: No calcified gallstones are seen. BILE DUCTS: No intra or extrahepatic ductal distention is seen. SPLEEN: The spleen is normal in size without significant focal abnormality. PANCREAS: There is fatty infiltration of the pancreas. No ductal distention or calcifications are seen. ADRENAL GLANDS: The adrenal glands are normal in size. KIDNEYS: The kidneys are normal in size. No renal calculi or hydronephrosis is seen. No significant focal renal abnormality is seen. AORTA: The abdominal aorta is normal in caliber and demonstrates homogeneous contrast opacification. LYMPH NODES: No significantly enlarged lymph nodes are seen. BOWEL: The stomach, small and large bowel appear nondistended. The appendix appears to be within normal limits. There are scattered diverticula within the colon. There is no evidence for diverticulitis or colitis. PELVIC ORGANS: No bladder wall thickening is seen. The prostate gland is mildly enlarged measuring 4.4 cm in transverse dimension. PERITONEUM: No free intraperitoneal air or fluid is seen. BONES: No significant focal osseous abnormality is seen. IMPRESSION: 1. NO EVIDENCE FOR ACUTE INTRA-ABDOMINAL ABNORMALITY OR CAUSE FOR THE PATIENT'S ABDOMINAL PAIN IS SEEN. 2. HEPATIC STEATOSIS.
--- NOTE | 2018-09-27 15:47 | ED ---
Abdominal Pain/Male - HPI Summary HPI Summary: Patient is a 48 y/o M w/ c/o RUQ pain and SOB. He notes that he was seen two weeks ago for the same Sx. Patient was discharged to home and instructed to return to ED if pain remained. Pain is reported to have worsened in the past two weeks. He states he has an "enlarged liver", denies alcohol use. PSHx of hernia repair, patient still has gallbladder. He denies vomiting and diarrhea, notes chronic back pain and chronic left leg edema. He denies fever, chills, DOBSON , ear pain, sore throat, blurred vision, double vision, neck pain, CP, dysuria, hematuria, blood in the stool, bruising, rashes, anxiety, and depression. On triage, pain is rated 5/10, nothing is noted to aggravate/alleviate Sx. Home medications and allergies are reviewed. - History of Current Complaint Chief Complaint: EDChestWallPain Stated Complaint: RIB AND GALL BLADDER PAIN Hx Obtained From: Patient Onset/Duration: Lasting Weeks - two weeks ago, Still Present, Worse Since Timing: Constant, Lasting Weeks - two weeks Severity Currently: Moderate - 5/10 Pain Intensity: 5 Pain Scale Used: 0-10 Numeric - 5/10 Location: Discrete At: RUQ Aggravating Factor(s): Nothing Alleviating Factor(s): Nothing Associated Signs And Symptoms: Positive: Other - denies chills, DOBSON, ear pain, sore throat, blurred vision, double vision, neck pain, dysuria, hematuria, bruising, rashes, anxiety, and depression.. Negative: Fever, Chest Pain, Back Pain, Blood in Stool, Urinary Symptoms, Vomiting, Diarrhea - Allergies/Home Medications Allergies/Adverse Reactions: Allergies Allergy/AdvReac Type Severity Reaction Status Date / Time acetaminophen [From Vicodin] Allergy Agitation Verified 09/27/18 13:57 amoxicillin Allergy Hives/Diff. Verified 09/27/18 13:57 Breathing/I tching clindamycin Allergy Itching Verified 09/27/18 13:57 hydrocodone [From Vicodin] Allergy Agitation Verified 09/27/18 13:57 morphine Allergy Nausea And Verified 09/27/18 13:57 Vomiting Penicillins Allergy Hives Verified 09/27/18 13:57 Sulfa (Sulfonamide Allergy Hives Verified 10/29/18 13:57 Antibiotics) PMH/Surg Hx/FS Hx/Imm Hx Endocrine/Hematology History: Denies: Hx Anticoagulant Therapy, Hx Blood Disorders, Hx Diabetes, Hx Anemia , Hx Unexplained Bleeding Cardiovascular History: Reports: Other Cardiovascular Problems/Disorders - PATIENT REPORTS LEFT LEG SWELLS AND TURNS AND REDS Denies: Hx Atrial Fibrillation, Hx Congestive Heart Failure, Hx Embolism, Hx Hypertension, Hx Pacemaker/ICD Respiratory History: Denies: Hx Asthma, Hx Chronic Obstructive Pulmonary Disease (COPD), Hx Pneumonia, Hx Pulmonary Embolism GI History: Reports: Hx Gastroesophageal Reflux Disease - undx'd and untx'd Denies: Hx Cirrhosis, Hx Crohn's Disease, Hx Diverticulosis, Hx Gall Bladder Disease, Hx Gastrointestinal Bleed, Hx Hiatal Hernia, Hx Irritable Bowel, Hx Obstructive Bowel, Hx Ulcer, Other GI Disorders History: Reports: Hx Kidney Stones - IN PAST Denies: Hx Renal Disease Sensory History: Reports: Hx Contacts or Glasses - GLASSES Denies: Hx Hearing Aid Opthamlomology History: Reports: Hx Contacts or Glasses - GLASSES Neurological History: Reports: Hx Headaches, Hx Migraine Psychiatric History: Denies: Hx Panic Disorder - Cancer History Cancer Type, 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 - Surgical History Surgery Procedure, Year, and Place: Back [id number]/umbilical hernia repair 12/29/13 Hx Anesthesia Reactions: No - Immunization History Date of Tetanus Vaccine: up to date per pt Infectious Disease History: No Infectious Disease History: Denies: Traveled Outside the [place] in Last 30 Days - Family History Known Family History: Positive: Cardiac Disease - father 70's of acute [place] suspected from chronic/untx'd a fib - Social History Alcohol Use: Occasionally Alcohol Amount: 6 PACK /WEEK Hx Substance Use: No Substance Use Type: Reports: None Hx Tobacco Use: No Smoking Status (MU): Never Smoked Tobacco Review of Systems Negative: Fever, Chills Positive: Other - NEGATIVE: double vision . Negative: Blurred Vision Negative: Sore Throat, Ear Ache Negative: Chest Pain Positive: Shortness Of Breath Positive: Abdominal Pain. Negative: Vomiting, Diarrhea Positive: other - NEGATIVE: blood in stool . Negative: dysuria, hematuria Positive: Edema - POSITIVE: chronic left leg edema , Other - NEGATIVE: neck pain POSITIVE: chronic back pain Negative: Rash, Bruising Negative: Headache Negative: Anxious, Depressed All Other Systems Reviewed And Are Negative: No Physical Exam - Summary Physical Exam Summary: Appearance: Alert, conversive, nontoxic appearing Skin: Warm, dry, no mottling, no rashes, no contusions HEENT: EOMI, PERRL, moist mucous membranes Neck: No masses on the neck, supple Respiratory: Clear to auscultation, breath sounds present, no rales, no rhonchi , no wheezes Cardiovascular: RRR, pulses are symmetrical in both lower and upper extremities Abdomen: Soft, RUQ tenderness Bowel Sounds: Present Musculoskeletal: right CVA tenderness, no obvious deformity, moving all extremities in a grossly normal manner Neurological: A&Ox3, CN II-XII Intact, moving all extremities symmetrically Psychiatric: Normal affect and mood Triage Information Reviewed: Yes Vital Signs On Initial Exam: Initial Vitals Temp Pulse Resp BP Pulse Ox 96.9 F 69 16 119/83 98 09/27/18 11:22 09/27/18 11:22 09/27/18 11:22 09/27/18 11:22 09/27/18 11:22 Vital Signs Reviewed: Yes Diagnostics - Vital Signs Vital Signs Temp Pulse Resp BP Pulse Ox 09/27/18 11:22 96.9 F 69 16 119/83 98 - Laboratory Lab Results: Lab Results 09/27/18 09/27/18 09/27/18 Range/Units 12:24 12:24 12:24 WBC (3.5-10.8) 10^3/ul RBC (4.00-5.40) 10^6/ul Hgb (14.0-18.0) g/dl Hct (42-52) % MCV (80-94) fL MCH (27-31) pg MCHC (31-36) g/dl RDW (10.5-15) % Plt Count (150-450) 10^3/ul MPV (7.4-10.4) um3 Neut % (Auto) (38-83) % Lymph % (Auto) (25-47) % Gibson % (Auto) (0-7) % Eos % (Auto) (0-6) % Baso % (Auto) (0-2) % Absolute Neuts (auto) (1.5-7.7) 10^3/ul Absolute Lymphs (auto) (1.0-4.8) 10^3/ul Absolute Monos (auto) (0-0.8) 10^3/ul Absolute Eos (auto) (0-0.6) 10^3/ul Absolute Basos (auto) (0-0.2) 10^3/ul Absolute Nucleated RBC 10^3/ul Nucleated RBC % INR (Anticoag Therapy) 0.91 (0.77-1.02) APTT 30.2 (26.0-36.3) seconds D-Dimer, Quantitative < 200 (Less Than 230) ng/mL Sodium 137 (135-145) mmol/L Potassium 4.2 (3.5-5.0) mmol/L Chloride 103 (101-111) mmol/L Carbon Dioxide 27 (22-32) mmol/L Anion Gap 7 (2-11) mmol/L BUN 15 (6-24) mg/dL Creatinine 1.10 (0.67-1.17) mg/dL Est GFR ( Amer) 86.1 (>60) Est GFR (Non-Af Amer) 71.1 (>60) BUN/Creatinine Ratio 13.6 (8-20) Glucose 97 (70-100) mg/dL Calcium 9.4 (8.6-10.3) mg/dL Total Bilirubin 0.70 (0.2-1.0) mg/dL AST 23 (13-39) U/L ALT 25 (7-52) U/L Alkaline Phosphatase 38 (34-104) U/L Troponin I 0.00 (<0.04) ng/mL B-Natriuretic Peptide 16 ( - 100) pg/mL Total Protein 7.2 (6.4-8.9) g/dL Albumin 4.5 (3.2-5.2) g/dL Globulin 2.7 (2-4) g/dL Albumin/Globulin Ratio 1.7 (1-3) 09/27/18 Range/Units 12:24 WBC 7.9 (3.5-10.8) 10^3/ul RBC 5.16 (4.00-5.40) 10^6/ul Hgb 16.1 (14.0-18.0) g/dl Hct 47 (42-52) % MCV 91 (80-94) fL MCH 31 (27-31) pg MCHC 34 (31-36) g/dl RDW 13 (10.5-15) % Plt Count 252 (150-450) 10^3/ul MPV 8.6 (7.4-10.4) um3 Neut % (Auto) 64.9 (38-83) % Lymph % (Auto) 27.5 (25-47) % Gibson % (Auto) 5.4 (0-7) % Eos % (Auto) 1.2 (0-6) % Baso % (Auto) 1.0 (0-2) % Absolute Neuts (auto) 5.1 (1.5-7.7) 10^3/ul Absolute Lymphs (auto) 2.2 (1.0-4.8) 10^3/ul Absolute Monos (auto) 0.4 (0-0.8) 10^3/ul Absolute Eos (auto) 0.1 (0-0.6) 10^3/ul Absolute Basos (auto) 0.1 (0-0.2) 10^3/ul Absolute Nucleated RBC 0 10^3/ul Nucleated RBC % 0 INR (Anticoag Therapy) (0.77-1.02) APTT (26.0-36.3) seconds D-Dimer, Quantitative (Less Than 230) ng/mL Sodium (135-145) mmol/L Potassium (3.5-5.0) mmol/L Chloride (101-111) mmol/L Carbon Dioxide (22-32) mmol/L Anion Gap (2-11) mmol/L BUN (6-24) mg/dL Creatinine (0.67-1.17) mg/dL Est GFR ( Amer) (>60) Est GFR (Non-Af Amer) (>60) BUN/Creatinine Ratio (8-20) Glucose (70-100) mg/dL Calcium (8.6-10.3) mg/dL Total Bilirubin (0.2-1.0) mg/dL AST (13-39) U/L ALT (7-52) U/L Alkaline Phosphatase (34-104) U/L Troponin I (<0.04) ng/mL B-Natriuretic Peptide ( - 100) pg/mL Total Protein (6.4-8.9) g/dL Albumin (3.2-5.2) g/dL Globulin (2-4) g/dL Albumin/Globulin Ratio (1-3) Result Diagrams: 09/27/18 12:24 09/27/18 12:24 Lab Statement: Any lab studies that have been ordered have been reviewed, and results considered in the medical decision making process. - Radiology CXR Radiology Interpretation Completed By: Radiologist Summary of Radiographic Findings: no active cardiopulmonary disease is noted, this report was reviewed by ED physician. - CT ct abd/pel CT Interpretation Completed By: Radiologist Summary of CT Findings: IMPRESSION: 1. NO EVIDENCE FOR ACUTE INTRA-ABDOMINAL ABNORMALITY OR CAUSE FOR THE PATIENT'S ABDOMINAL. PAIN IS SEEN. 2. HEPATIC STEATOSIS. THIS REPORT WAS REVIEWED BY ED PHYSICIAN. - EKG 1345 Cardiac Rate: Bradycardia - rate of 54 BPM EKG Rhythm: Sinus Bradycardia Summary of EKG Findings: non-specific ST-T changes in avF, inverted t-waves in lead III, normal QRS, normal QTc Re-Evaluation - Re-Evaluation First Eval Re-Evaluation Time: 15:40 Comment: Discussed results of labs and tests with patient, he will be discharged to home and is instructed to follow up with PCP. Patient is agreeable with this. Abdominal Pain Fem Course/Dx - Course Course Of Treatment: Patient is a 48 y/o M w/ c/o RUQ pain and SOB. He notes that he was seen two weeks ago for the same Sx. Patient was discharged to home and instructed to return to ED if pain remained. Pain is reported to have worsened in the past two weeks. He states he has an "enlarged liver", denies alcohol use. PSHx of hernia repair, patient still has gallbladder. He denies vomiting and diarrhea, notes chronic back pain and chronic left leg edema. On physical exam, patient is noted to have RUQ tenderness and right CVA tenderness. Labs showed trop 0, BNP 16, d-dimer < 200. CXR showed no active cardiopulmonary disease is noted. EKG showed sinus bradycardia with rate of 54 BPM, non-specific ST-T changes in avF, inverted t-waves in lead III, normal QRS , normal QTc. CT ABD/PEL IMPRESSION: 1. NO EVIDENCE FOR ACUTE INTRA-ABDOMINAL ABNORMALITY OR CAUSE FOR THE PATIENT'S ABDOMINAL. PAIN IS SEEN. 2. HEPATIC STEATOSIS. Discussed results of labs and tests with patient, he will be discharged to home and is instructed to follow up with PCP. Patient is agreeable with this. Dx of fatty liver and pancreas. - Diagnoses Provider Diagnoses: Fatty liver, Fatty pancreas Discharge - Sign-Out/Discharge Documenting (check all that apply): Patient Departure - discharge - Discharge Plan Condition: Stable Disposition: HOME Patient Education Materials: Acute Abdominal Pain (ED), Non-Alcoholic Fatty Liver Disease (ED) Referrals: Laci Fuller MD [Medical Doctor] - Molly Hernandez MD [Primary Care Provider] - Additional Instructions: Please follow up with your primary care physician. return if worse or any new symptoms. Avoid tylenol. you may take motrin for pain or discomfort. Please also follow up with GI. I have given you a referral to a surveillance systems engineer. Avoid alcohol. - Billing Disposition and Condition Condition: STABLE Disposition: Home - Attestation Statements Document Initiated by Valerie: Yes Documenting Scribe: Valdez Soler Provider For Whom Valerie is Documenting (Include Credential): Kimber Townsend MD Scribe Attestation: I, Valdez Soler , scribed for Kimber Townsend MD on 09/30/18 at 1825. Scribe Documentation Reviewed: Yes Provider Attestation: The documentation as recorded by the Valdez beatty accurately reflects the service I personally performed and the decisions made by me, Kimber Townsend MD
== END 2018-09-27 16:05 | disposition home or self-care (01) ==
LOC: ED 11:13
DX: K76.0 Fatty (change of) liver, not elsewhere classified (principal); K86.89 Other specified diseases of pancreas; R06.02 Shortness of breath; R10.11 Right upper quadrant pain; R00.1 Bradycardia, unspecified; Z88.6 Allergy status to analgesic agent; Z88.1 Allergy status to other antibiotic agents; Z88.5 Allergy status to narcotic agent; Z88.0 Allergy status to penicillin; Z88.2 Allergy status to sulfonamides
CPT/HCPCS: 36415; 71046; 74177; 80053; 83880; 84484; 85025; 85379; 85610; 85730; 93005; 99282; Q9967

== ENCOUNTER 2018-11-18 16:39 | Emergency (ER) | payer OTHER ==
--- NOTE | 2018-11-18 19:23 | ED ---
GI/ HPI - HPI Summary HPI Summary: This patient is a 48 year old M presenting to [facility] accompanied by his with a chief complaint of hematuria since this evening. His urine was normal this morning. Patient reports a pulled muscle in his back. Patient denies dysuria. He had a biopsy on stomach and intestines two weeks ago and was told to come to the ED if these symptoms occur. When he saw the blood this evening, he said he didnt notice if it was clotted or the color. He is currently being treated for H pylori. He mentioned that he has taken Ibuprofen today and yesterday. PMHX pancreatitis. - History of Current Complaint Chief Complaint: EDUrogenitalProblems Time Seen by Provider: 11/18/18 18:58 Stated Complaint: URINARY Hx Obtained From: Patient Onset/Duration: Started Hours Ago Pain Intensity: 0 Associated Signs and Symptoms: Positive: Back Pain, Hematuria - Allergy/Home Medications Allergies/Adverse Reactions: Allergies Allergy/AdvReac Type Severity Reaction Status Date / Time acetaminophen [From Vicodin] Allergy Agitation Verified 11/18/18 16:42 amoxicillin Allergy Hives/Diff. Verified 11/18/18 16:42 Breathing/I tching clindamycin Allergy Itching Verified 11/18/18 16:42 hydrocodone [From Vicodin] Allergy Agitation Verified 11/18/18 16:42 morphine Allergy Nausea And Verified 11/18/18 16:42 Vomiting Penicillins Allergy Hives Verified 11/18/18 16:42 Sulfa (Sulfonamide Allergy Hives Verified 11/18/18 16:42 Antibiotics) Home Medications: Home Medications Pantoprazole Sodium 40 mg PO DAILY 11/18/18 [History Confirmed 11/18/18] metroNIDAZOLE * 500 mg PO TID 11/18/18 [History Confirmed 11/18/18] PMH/Surg Hx/FS Hx/Imm Hx Endocrine/Hematology History: Denies: Hx Anticoagulant Therapy, Hx Blood Disorders, Hx Diabetes, Hx Anemia , Hx Unexplained Bleeding Cardiovascular History: Reports: Other Cardiovascular Problems/Disorders - PATIENT REPORTS LEFT LEG SWELLS AND TURNS AND REDS Denies: Hx Atrial Fibrillation, Hx Congestive Heart Failure, Hx Embolism, Hx Hypertension, Hx Pacemaker/ICD Respiratory History: Denies: Hx Asthma, Hx Chronic Obstructive Pulmonary Disease (COPD), Hx Pneumonia, Hx Pulmonary Embolism GI History: Reports: Hx Gastroesophageal Reflux Disease - undx'd and untx'd Denies: Hx Cirrhosis, Hx Crohn's Disease, Hx Diverticulosis, Hx Gall Bladder Disease, Hx Gastrointestinal Bleed, Hx Hiatal Hernia, Hx Irritable Bowel, Hx Obstructive Bowel, Hx Ulcer, Other GI Disorders History: Reports: Hx Kidney Stones - IN PAST Denies: Hx Renal Disease Sensory History: Reports: Hx Contacts or Glasses - GLASSES Denies: Hx Hearing Aid Opthamlomology History: Reports: Hx Contacts or Glasses - GLASSES Neurological History: Reports: Hx Headaches, Hx Migraine Psychiatric History: Denies: Hx Panic Disorder - Cancer History Cancer Type, 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 - Surgical History Surgery Procedure, Year, and Place: Back [id number]/umbilical hernia repair 12/29/13 Hx Anesthesia Reactions: No - Immunization History Date of Tetanus Vaccine: up to date per pt Infectious Disease History: No Infectious Disease History: Denies: Traveled Outside the [place] in Last 30 Days - Family History Known Family History: Positive: Cardiac Disease - father 70's of acute [place] suspected from chronic/untx'd a fib - Social History Alcohol Use: Occasionally Alcohol Amount: 6 PACK /WEEK Hx Substance Use: No Substance Use Type: Reports: None Hx Tobacco Use: No Smoking Status (MU): Never Smoked Tobacco Review of Systems Positive: hematuria. Negative: dysuria Positive: Myalgia - back pain, pulled muscle All Other Systems Reviewed And Are Negative: Yes Physical Exam - Summary Physical Exam Summary: Appearance: Well-appearing, Well-nourished, lying in bed comfortably Skin: Warm, dry, no obvious rash Eyes: sclera anicteric, no conjunctival pallor ENT: mucous membranes moist, pharynx appears normal Neck: Supple, nontender Respiratory: Clear to auscultation, no signs of respiratory distress Cardiovascular: Normal S1, S2. No murmurs. Normal distal pulses in tibial and radial bilaterally. Abdomen: Soft, normal active bowel sounds present. Mild right side abdominal tenderness. Musculoskeletal: Normal, Strength/ROM Intact Neurological: A&Ox3, awake and alert, mentation is normal, speech is fluent and appropriate Psychiatric: affect is normal, does not appear anxious or depressed Triage Information Reviewed: Yes Vital Signs On Initial Exam: Initial Vitals Temp Pulse Resp BP Pulse Ox 97.4 F 68 16 148/106 100 11/18/18 16:40 11/18/18 16:40 11/18/18 16:40 11/18/18 16:40 11/18/18 16:40 Vital Signs Reviewed: Yes Diagnostics - Vital Signs Vital Signs Temp Pulse Resp BP Pulse Ox 11/18/18 18:33 97.9 F 67 16 142/92 99 11/18/18 16:40 97.4 F 68 16 148/106 100 - Laboratory Result Diagrams: 11/18/18 19:28 11/18/18 19:28 Lab Statement: Any lab studies that have been ordered have been reviewed, and results considered in the medical decision making process. GIGU Course/Dx - Course Course Of Treatment: This patient is a 48 year old M presenting to [facility] accompanied by his with a chief complaint of hematuria since this evening. His urine was normal this morning. Patient reports a pulled muscle in his back. Patient denies dysuria. Test results with no significant abnormalities. Patient will be discharged with follow up from Dr. Barnes. The patient is agreeable with this plan. - Diagnoses Provider Diagnoses: Hematuria Discharge - Sign-Out/Discharge Documenting (check all that apply): Patient Departure - discharge - Discharge Plan Condition: Good Disposition: HOME Patient Education Materials: Hematuria (ED) Referrals: Molly Hernandez MD [Primary Care Provider] - Dedrick Posada MD [Medical Doctor] - Additional Instructions: We did not find any significant blood in the urine tonight. However this can be intermittent and should still be evaluated. Usually this means a repeat urinalysis in a week or two and if still showing blood, referral to a urologist for further workup. I do not think this is related to your recent GI problems. - Billing Disposition and Condition Condition: GOOD Disposition: Home - Attestation Statements Document Initiated by Valerie: Yes Documenting Scribe: Carlos Moreno Provider For Whom Valerie is Documenting (Include Credential): Isidro Skinner MD Scribe Attestation: I, Carlos Moreno, youed for Isidro Skinner MD on 11/19/18 at 0234. Scribe Documentation Reviewed: Yes Provider Attestation: The documentation as recorded by the Carlos beatty accurately reflects the service I personally performed and the decisions made by me, Isidro Skinner MD Status of Scribe Document: Viewed
[2018-11-18 19:41] LABS: ABS Basophils 0.1 10^3/ul (0-0.2); ABS Eosinophils 0.1 10^3/ul (0-0.6); ABS Lymphocytes 1.7 10^3/ul (1.0-4.8); ABS Monocytes 0.5 10^3/ul (0-0.8); ABS Neutrophils 3.4 10^3/ul (1.5-7.7); ABS Nucleated RBC 0 10^3/ul; Eosinophil % 1.6 %; Hematocrit 44 % (42-52); Hemoglobin 14.8 g/dl (14.0-18.0); Mean Corpuscular HGB Conc 34 g/dl (31-36); Mean Corpuscular Hemoglobin 31 pg (27-31); Mean Corpuscular Volume 92 fL (80-94); Mean Platelet Volume 8.3 fL (7.4-10.4); Nucleated Red Blood Cells % 0.1; Platelet Count 251 10^3/ul (150-450); Red Cell Distribution Width 13 % (10.5-15); White Blood Count 5.8 10^3/ul (3.5-10.8)
[2018-11-18 19:59] LABS: ALT 59 U/L (7-52); AST 37 U/L (13-39); Albumin 4.3 g/dL (3.2-5.2); Albumin/Globulin Ratio 1.7 (1-3); Alkaline Phosphatase 28 U/L (34-104); Anion Gap 5 mmol/L (2-11); BUN/Creatinine Ratio 11.4 (8-20); Blood Urea Nitrogen 13 mg/dL (6-24); CO2 Carbon Dioxide 27 mmol/L (22-32); Calcium 9.2 mg/dL (8.6-10.3); Chloride 106 mmol/L (101-111); EGFR Non-African American 68.3 (>60); Globulin 2.5 g/dL (2-4); Glucose 90 mg/dL (70-100); Potassium 4.3 mmol/L (3.5-5.0); Sodium 138 mmol/L (135-145); Total Protein 6.8 g/dL (6.4-8.9)
[2018-11-18 20:14] LABS: Urine Appearance Clear; Urine Bacteria Absent (Absent); Urine Bilirubin Negative (Negative); Urine Blood Negative (Negative); Urine Color Yellow; Urine Glucose Negative (Negative); Urine Ketones Negative (Negative); Urine Nitrite Negative (Negative); Urine Protein Negative (Negative); Urine Red Blood Cell Trace(0-2/hpf) (Absent); Urine Specific Gravity 1.009 (1.010-1.030); Urine Urobilinogen Negative (Negative); Urine White Blood Cell Trace(0-5/hpf) (Absent)
[2018-11-18 21:09] VITALS: BP 122/89
== END 2018-11-18 21:09 | disposition home or self-care (01) ==
LOC: ED 16:39
DX: R31.9 Hematuria, unspecified (principal); Z87.442 Personal history of urinary calculi; Z85.828 Personal history of other malignant neoplasm of skin
CPT/HCPCS: 36415; 80053; 81003; 81015; 83690; 85025; 87086; 99283

== ENCOUNTER 2019-04-12 10:15 | Emergency (ER) | payer OTHER ==
[2019-04-12 10:49] LABS: ABS Eosinophils 0.2 10^3/ul (0-0.6); ABS Lymphocytes 1.8 10^3/ul (1.0-4.8); ABS Monocytes 0.5 10^3/ul (0-0.8); ABS Neutrophils 4.4 10^3/ul (1.5-7.7); Eosinophil % 2.6 %; Hematocrit 47 % (42-52); Hemoglobin 15.9 g/dL (14.0-18.0); Lymphocyte % 25.8 %; Mean Corpuscular HGB Conc 34 g/dL (31-36); Mean Corpuscular Hemoglobin 31 pg (27-31); Mean Corpuscular Volume 92 fL (80-94); Mean Platelet Volume 8.5 fL (7.4-10.4); Nucleated Red Blood Cells % 0.2; Platelet Count 255 10^3/uL (150-450); Red Blood Count 5.11 10^6 /uL (4.18-5.48); Red Cell Distribution Width 13 % (10.5-15); White Blood Count 6.9 10^3/uL (3.5-10.8)
[2019-04-12 10:51] LABS: INR 0.97 (0.82-1.09)
[2019-04-12 11:06] LABS: Albumin 4.5 g/dL (3.2-5.2); Albumin/Globulin Ratio 1.6 (1-3); BUN/Creatinine Ratio 12.6 (8-20); Calcium 9.4 mg/dL (8.6-10.3); EGFR African American 92.9 (>60); EGFR Non-African American 76.8 (>60); Globulin 2.8 g/dL (2-4); Potassium 4.5 mmol/L (3.5-5.0); Total Bilirubin 0.7 mg/dL (0.2-1.0); Total Protein 7.3 g/dL (6.4-8.9)
--- NOTE | 2019-04-12 11:18 | ED ---
HPI Chest Pain - HPI Summary HPI Summary: Pt is a 48 y/o M presenting to the ED with a chief complaint of chest pain in his mid-sternal chest area that is intermittent. He states he has been getting the chest pain more frequently, so he tried to call Dr. Julio, his guard entrance registrar, but he did not call back. The pt has had a cardiac stress test done which was fine, but he has been monitoring his BP and is supposed to go back for more bloodwork soon. On 04/07/19, he was sitting at the dinner table with his and became very diaphoretic without any chest pain, and on 04/10/19 , he experienced pain in his neck that radiated to his jaw. This morning, he had mid-sternal chest pain that radiates to his L shoulder and to his back, in between his shoulder blades. He also reports an associated headache, feeling very warm, but his skin was cold to the touch according to the pts . His took his blood pressure and it was 137/104. He has FHx of cardiac issues in both of his parents as well as his brother. - History of Current Complaint Chief Complaint: EDChestPainROMI Time Seen by Provider: 04/12/19 10:20 Hx Obtained From: Patient Onset/Duration: Started Weeks Ago, Still Present Timing: Intermittent, Lasting Hours Initial Severity: Moderate Current Severity: Moderate Pain Intensity: 5 Pain Scale Used: 0-10 Numeric Chest Pain Location: Mid Sternal, Left Anterior Chest Pain Radiates: Yes Chest Pain Radiates To:: Back, Arm, Jaw, Neck Character: Sharp/Stabbing Aggravating Factor(s): Nothing Alleviating Factor(s): Spontaneous Resolution Associated Signs and Symptoms: Positive: Chest Pain, Headaches, Numbness, Chills , Diaphoresis - Allergy/Home Medications Allergies/Adverse Reactions: Allergies Allergy/AdvReac Type Severity Reaction Status Date / Time acetaminophen [From Vicodin] Allergy Agitation Verified 11/18/18 16:42 amoxicillin Allergy Hives/Diff. Verified 11/18/18 16:42 Breathing/I tching clindamycin Allergy Itching Verified 11/18/18 16:42 hydrocodone [From Vicodin] Allergy Agitation Verified 11/18/18 16:42 morphine Allergy Nausea And Verified 11/18/18 16:42 Vomiting Penicillins Allergy Hives Verified 11/18/18 16:42 Sulfa (Sulfonamide Allergy Hives Verified 11/18/18 16:42 Antibiotics) Home Medications: Home Medications NK [No Home Medications Reported] 04/12/19 [History Confirmed 04/12/19] PMH/Surg Hx/FS Hx/Imm Hx Previously Healthy: Yes Endocrine/Hematology History: Denies: Hx Anticoagulant Therapy, Hx Blood Disorders, Hx Diabetes, Hx Anemia , Hx Unexplained Bleeding Cardiovascular History: Reports: Other Cardiovascular Problems/Disorders - PATIENT REPORTS LEFT LEG SWELLS AND TURNS AND REDS Denies: Hx Atrial Fibrillation, Hx Congestive Heart Failure, Hx Embolism, Hx Hypertension, Hx Pacemaker/ICD Respiratory History: Denies: Hx Asthma, Hx Chronic Obstructive Pulmonary Disease (COPD), Hx Pneumonia, Hx Pulmonary Embolism GI History: Reports: Hx Gastroesophageal Reflux Disease - undx'd and untx'd Denies: Hx Cirrhosis, Hx Crohn's Disease, Hx Diverticulosis, Hx Gall Bladder Disease, Hx Gastrointestinal Bleed, Hx Hiatal Hernia, Hx Irritable Bowel, Hx Obstructive Bowel, Hx Ulcer, Other GI Disorders History: Reports: Hx Kidney Stones - IN PAST Denies: Hx Renal Disease Sensory History: Reports: Hx Contacts or Glasses - GLASSES Denies: Hx Hearing Aid Opthamlomology History: Reports: Hx Contacts or Glasses - GLASSES Neurological History: Reports: Hx Headaches, Hx Migraine Psychiatric History: Denies: Hx Panic Disorder - Cancer History Cancer Type, 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 - Surgical History Surgery Procedure, Year, and Place: Back [id number]/umbilical hernia repair 12/29/13 Hx Anesthesia Reactions: No - Immunization History Date of Tetanus Vaccine: up to date per pt Infectious Disease History: No Infectious Disease History: Denies: Traveled Outside the [place] in Last 30 Days - Family History Known Family History: Positive: Cardiac Disease - father 70's of acute AK suspected from chronic/untx'd a fib - Social History Alcohol Use: Occasionally Alcohol Amount: 6 PACK /WEEK Hx Substance Use: No Substance Use Type: Reports: None Hx Tobacco Use: No Smoking Status (MU): Never Smoked Tobacco Review of Systems Positive: Chills, Skin Diaphoresis Positive: Chest Pain Positive: Myalgia Positive: Headache, Weakness, Paresthesia, Numbness All Other Systems Reviewed And Are Negative: Yes Physical Exam - Summary Physical Exam Summary: Appearance: The patient is well-nourished in no acute distress and in no acute pain. Skin: The skin is warm and dry and skin color reflects adequate perfusion. HEENT: The head is normocephalic and atraumatic. The pupils are equal and reactive. The conjunctivae are clear and without drainage. Nares are patent and without drainage. Mouth reveals moist mucous membranes and the throat is without erythema and exudate. The external ears are intact. The ear canals are patent and without drainage. The tympanic membranes are intact. Neck: The neck is supple with full range of motion and non-tender. There are no carotid bruits. There is no neck vein distension. Respiratory: Chest is non-tender. Lungs are clear to auscultation and breath sounds are symmetrical and equal. Cardiovascular: Heart is regular rate and rhythm. There is no murmur or rub auscultated. There is no peripheral edema and pulses are symmetrical and equal. Abdomen: The abdomen is soft and non-tender. There are normal bowel sounds heard in all four quadrants and there is no organomegaly palpated. Musculoskeletal: There is no back tenderness noted. Extremities are non-tender with full range of motion. There is good capillary refill. There is no peripheral edema or calf tenderness elicited. Neurological: Patient is alert and oriented to person, place and time. The patient has symmetrical motor strength in all four extremities. Cranial nerves are grossly intact. Deep tendon reflexes are symmetrical and equal in all four extremities. Psychiatric: The patient has an appropriate affect and does not exhibit any anxiety or depression. Triage Information Reviewed: Yes Vital Signs On Initial Exam: Initial Vitals Temp Pulse Resp BP Pulse Ox 98.0 F 73 16 140/94 100 04/12/19 10:23 04/12/19 10:23 04/12/19 10:23 04/12/19 10:23 04/12/19 10:23 Vital Signs Reviewed: Yes Diagnostics - Vital Signs Vital Signs Temp Pulse Resp BP Pulse Ox 04/12/19 10:23 98.0 F 73 16 140/94 100 - Laboratory Lab Results: Lab Results 04/12/19 04/12/19 04/12/19 Range/Units 10:32 10:32 10:32 WBC 6.9 (3.5-10.8) 10^3/uL RBC 5.11 (4.18-5.48) 10^6 /uL Hgb 15.9 (14.0-18.0) g/dL Hct 47 (42-52) % MCV 92 (80-94) fL MCH 31 (27-31) pg MCHC 34 (31-36) g/dL RDW 13 (10.5-15) % Plt Count 255 (150-450) 10^3/uL MPV 8.5 (7.4-10.4) fL Neut % (Auto) 64.3 % Lymph % (Auto) 25.8 % [place] % (Auto) 6.7 % Eos % (Auto) 2.6 % Baso % (Auto) 0.6 % Absolute Neuts (auto) 4.4 (1.5-7.7) 10^3/ul Absolute Lymphs (auto) 1.8 (1.0-4.8) 10^3/ul Absolute Monos (auto) 0.5 (0-0.8) 10^3/ul Absolute Eos (auto) 0.2 (0-0.6) 10^3/ul Absolute Basos (auto) 0.0 (0-0.2) 10^3/ul Absolute Nucleated RBC 0.0 10^3/ul Nucleated RBC % 0.2 INR (Anticoag Therapy) 0.97 (0.82-1.09) Sodium 138 (135-145) mmol/L Potassium 4.5 (3.5-5.0) mmol/L Chloride 103 (101-111) mmol/L Carbon Dioxide 28 (22-32) mmol/L Anion Gap 7 (2-11) mmol/L BUN 13 (6-24) mg/dL Creatinine 1.03 (0.67-1.17) mg/dL Est GFR ( Amer) 92.9 (>60) Est GFR (Non-Af Amer) 76.8 (>60) BUN/Creatinine Ratio 12.6 (8-20) Glucose 96 (70-100) mg/dL Calcium 9.4 (8.6-10.3) mg/dL Total Bilirubin 0.70 (0.2-1.0) mg/dL AST 22 (13-39) U/L ALT 25 (7-52) U/L Alkaline Phosphatase 37 (34-104) U/L Troponin I 0.00 (<0.04) ng/mL Total Protein 7.3 (6.4-8.9) g/dL Albumin 4.5 (3.2-5.2) g/dL Globulin 2.8 (2-4) g/dL Albumin/Globulin Ratio 1.6 (1-3) Result Diagrams: 04/12/19 10:32 04/12/19 10:32 Lab Statement: Any lab studies that have been ordered have been reviewed, and results considered in the medical decision making process. - Radiology CXR Radiology Interpretation Completed By: Radiologist Summary of Radiographic Findings: No evidence for active cardiopulmonary disease. ED physician has reviewed this report. - EKG 1023 Cardiac Rate: NL - 59bpm EKG Rhythm: Sinus Rhythm ST Segment: Normal Ectopy: None Summary of EKG Findings: EKG at 1023 shows NSR at 59bpm with no STEMI and no acute changes. Chest Pain Course/Dx - Course Course Of Treatment: Mr. Bartlett has been having intermittent chest pain for a few days. He cannot really describe any exacerbating or relieving factors. He did have some mild nausea with it. He was evaluated here with EKG, chest x-ray and labs including a delayed troponin. Troponin was normal and during his workup he set up an appointment with his guard entrance registrar Dr. Saha for tomorrow morning. I encouraged him to follow-up and return if his symptoms return. - Diagnoses Provider Diagnoses: Chest pain Discharge - Sign-Out/Discharge Documenting (check all that apply): Patient Departure Patient Received Moderate/Deep Sedation with Procedure: No - Discharge Plan Condition: Stable Disposition: HOME Referrals: Molly Hernandez MD [Primary Care Provider] - Additional Instructions: Please keep your appointment with your guard entrance registrar and follow up with them in the morning. Return to the emergency department with any new or worsening symptoms. - Billing Disposition and Condition Condition: STABLE Disposition: Home - Attestation Statements Document Initiated by Scribe: Yes Documenting Scribe: Arin Singh Provider For Whom Valerie is Documenting (Include Credential): Isidro Navarro MD. Scribe Attestation: Arin Barrett, scribed for Isidro Navarro MD. on 04/12/19 at 1727. Scribe Documentation Reviewed: Yes Provider Attestation: The documentation as recorded by the Arin beatty accurately reflects the service I personally performed and the decisions made by me, Isidro Navarro MD. Status of Scribe Document: Viewed
[2019-04-12 14:51] VITALS: BP 143/97
== END 2019-04-12 14:58 | disposition home or self-care (01) ==
LOC: ED 10:15
DX: R07.9 Chest pain, unspecified (principal); K21.9 Gastro-esophageal reflux disease without esophagitis; Z88.5 Allergy status to narcotic agent; Z88.0 Allergy status to penicillin; Z88.2 Allergy status to sulfonamides
CPT/HCPCS: 36415; 71046; 80053; 84484; 85025; 85610; 93005; 99283